=== PATIENT | male | born 1940 | race Caucasian/White ===

== ENCOUNTER 2020-03-11 00:41 | Inpatient (IN) | payer MEDICARE, BC ==
[~2020-03-11] VITALS: Ht 182.9 cm; Wt 50.8 kg
--- NOTE | 2020-03-11 01:04 | NUR ---
BIBRA FROM HOME C/O MORE ALTERED THAN NORMAL. PER RA, BASELINE PT OPENS EYES, TODAY PT IS "MORE AGITATED" , pt aaox0, non verbal, noted lethargic, pt sat on ra 95-96%. no sob noted. vss. pending er provider lesley
--- NOTE | 2020-03-11 01:29 | NUR ---
SHAHEEN CONTACT INFORMATION: [phone]
--- NOTE | 2020-03-11 01:40 | NUR ---
urine collected and sent to lab
[2020-03-11 01:47] LABS: BASOPHILS # (AUTO) 0.1 /CMM (0.0-0.2); BASOPHILS % (AUTO) 0.7 % (0.0-2.0); BILIRUBIN,URINE NEGATIVE (NEGATIVE); COLOR,URINE YELLOW (YELLOW); HEMATOCRIT 50 % (39-51); HEMOGLOBIN 16.2 g/dL (13.5-17.5); LEUKOCYTE ESTERASE ,URINE NEGATIVE (NEGATIVE); LYMPHOCYTES # (AUTO) 1.1 /CMM (0.8-4.8); LYMPHOCYTES % (AUTO) 13.3 % (20.0-44.0); MEAN CORPUSCULAR HGB CONC 33 g/dl (31.0-36.0); MEAN CORPUSCULAR VOLUME 95 fL (80-96); MONOCYTES # (AUTO) 1.1 /CMM (0.1-1.30); MONOCYTES % (AUTO) 14.3 % (2.0-12.0); NEUTROPHILS # (AUTO) 5.8 /CMM (1.8-8.9); NEUTROPHILS % (AUTO) 71.7 % (43.0-81.0); NITRITE, URINE NEGATIVE (NEGATIVE); PH,URINE 5.5 (5.0-8.0); PLATELET COUNT (AUTO) 235 /CMM (150-450); PROTEIN,URINE NEGATIVE (NEGATIVE); RED BLOOD CELL COUNT(AUTO) 5.25 MIL/uL (4.5-6.0); UGLUCOSE NEGATIVE (NEGATIVE); UROBILINOGEN,URINE 0.2 EU/dL (0.2)
[2020-03-11 01:59] LABS: CALCIUM, SERUM 9.1 mg/dL (8.5-10.1); CARBON DIOXIDE 27 mmol/L (21-32); CHLORIDE 112 mmol/L (98-107); CREATININE 1.4 mg/dL (0.6-1.3); GLUCOSE 141 mg/dL (74-106); POTASSIUM 4.7 mmol/L (3.5-5.1); SODIUM SERUM 148 mmol/L (136-145); UREA NITROGEN, BLOOD 32 mg/dL (7-18)
[2020-03-11 02:05] LABS: ALANINE AMINOTRANSFERASE 83 U/L (12-78); ALBUMIN 2.7 g/dL (3.4-5.0); ALKALINE PHOSPHATASE 93 U/L (46-116); ASPARTATE AMINOTRANSFERASE 67 U/L (15-37); BILIRUBIN,DIRECT 0.3 mg/dL (0.0-0.2); TOTAL PROTEIN, SERUM 6.9 g/dL (6.4-8.2)
[2020-03-11 02:07] LABS: SERUM AMMONIA 2 umol/L (11-32)
[2020-03-11] MEDS ORDERED: IV NS 0.9% 1,000 ML IV STA (02:14)
[2020-03-11] MEDS ORDERED: HYDROCODONE/APAP 5/325MG TABLET PO PRN ×2 (03:00→16:30)
[2020-03-11] MEDS ORDERED: MAGNESIUM HYDROXIDE 30 ML UDC PO PRN ×2 (03:00→16:30)
[2020-03-11] MEDS ORDERED: ACETAMINOPHEN 325 MG TABLET PO PRN (03:00)
[2020-03-11] MEDS ORDERED: AZITHROMYCIN 500 MG in IV D5W 250 ML IV ONE (03:00)
[2020-03-11] MEDS ORDERED: ONDANSETRON HCL/PF 4 MG/2 ML VIAL IVP PRN ×2 (03:00→16:30)
[2020-03-11] MEDS ORDERED: ZOLPIDEM TARTRATE 5 MG TABLET PO PRN ×2 (03:00→16:30)
[2020-03-11] MEDS ORDERED: IV NS 0.9% 1,000 ML IV PRN (03:00)
[2020-03-11] MEDS ORDERED: CEFTRIAXONE 1 G in IV D5W 50 ML IV ONE (03:00)
[2020-03-11] MEDS ORDERED: HEPARIN SODIUM, PORCINE 5000 UNITS/1 ML VIAL SQ SCH (03:00)
--- NOTE | 2020-03-11 03:03 | NUR ---
COVID SWAB COLLECTED AND SENT TO LAB
[2020-03-11] MEDS ORDERED: CEFTRIAXONE 1GM BAG (ER ONLY) 50 ML IV ONE (03:38)
[2020-03-11] MEDS ORDERED: AZITHROMYCIN 500 MG VIAL ONE (03:38)
[2020-03-11] MEDS ORDERED: HEPARIN SODIUM, PORCINE 5000 UNITS/1 ML VIAL ONE (03:38)
--- NOTE | 2020-03-11 03:45 | NUR ---
REC'D POSITIVE COVID RESULTS. AWARE
--- NOTE | 2020-03-11 04:53 | NUR ---
UPDATED BRANDYN RE: PT'S CONDITION
[2020-03-11 05:33] LABS: D-DIMER 35.2 mg/L(FEU (0.17-0.50)
[2020-03-11] MEDS ORDERED: ENOXAPARIN SODIUM 60 MG/0.6 ML DISP.SYRIN SQ ONE ×2 (09:11→20:13)
[2020-03-11] MEDS: ENOXAPARIN SODIUM 60 MG/0.6 ML DISP.SYRIN SQ SCH ×2 (09:14→20:36)
--- NOTE | 2020-03-11 11:19 | NUR ---
PT SLEEPING, EASILY AROUSABLE. ON MONITOR STABLE VITALS. SPO2 95% ON 2L/MIN NC. WILL CONTINUE TO MONITOR.
--- NOTE | 2020-03-11 13:53 | NUR ---
RESTING IN BED. AROUSABLE, OPENS EYES AND TRACKS, REMAINS NON VERBAL. STABLE VITALS. WILL CONTINUE TO MONITOR.
[2020-03-11] MEDS ORDERED: Z GUARD REMEDY 2 OZ OINT TP PRN (16:30)
[2020-03-11] MEDS ORDERED: MAG HYDROX/AL HYDROX/SIMETH 30 ML UDC PO PRN (16:30)
[2020-03-11] MEDS ORDERED: DEXAMETHASONE SOD PHOSPHATE 10 MG/ML VIAL ONE (16:44)
[2020-03-11] MEDS: DEXAMETHASONE SOD PHOSPHATE 4 MG/ML VIAL IV SCH (16:48)
--- NOTE | 2020-03-11 17:35 | NUR ---
PT CLEANED, PROVIDED W/ NEW DIAPER. KEPT WARM.
--- NOTE | 2020-03-11 19:10 | NUR ---
PT SLEEPING, EASILY AROUSABLE. KEPT COMFORTABLE. STABLE VITALS.
--- NOTE | 2020-03-11 19:50 | NUR ---
REC'D PT IN BED , AWAKE . BREATHING EVENLY. ON O2 AT 4LPM VIA NC. JULITO WELL. NO SOB. NAD. NO S/S OF PAIN OR DISCOMFORT AT THIS TIME. BED LOW LOCKED POSITION. SR X 2. CALL LIGHT WITHIN REACH. HOB ELEVATED. WILL CONT TO MONITOR.
--- NOTE | 2020-03-11 19:51 | NUR ---
REPORT GIVEN TO AGUSTIN GLYNN FOR [facility].
[2020-03-11] MEDS: IV D5/0.45 NACL 1,000 ML IV PRN (20:36)
--- NOTE | 2020-03-11 22:15 | NUR ---
spoke to danni, the and updated her re pt's condition
[2020-03-12] MEDS ORDERED: CEFTRIAXONE 1 G in IV D5W 50 ML IV SCH (04:00)
--- NOTE | 2020-03-12 04:32 | NUR ---
REC'D CALL FROM LAB. PRELIMINARY BLOOD CULTURE RESULTS: GRAM POSITIVE COCCI IN CLUSTER. AUDI WARE NP MADE AWARE
[2020-03-12 05:47] LABS: BASOPHILS % (AUTO) 0.2 % (0.0-2.0); HEMATOCRIT 42 % (39-51); HEMOGLOBIN 13.9 g/dL (13.5-17.5); LYMPHOCYTES # (AUTO) 0.5 /CMM (0.8-4.8); LYMPHOCYTES % (AUTO) 8.8 % (20.0-44.0); MEAN CORPUSCULAR HGB CONC 33 g/dl (31.0-36.0); MEAN CORPUSCULAR VOLUME 93 fL (80-96); MONOCYTES # (AUTO) 0.5 /CMM (0.1-1.30); MONOCYTES % (AUTO) 8.9 % (2.0-12.0); NEUTROPHILS % (AUTO) 82.1 % (43.0-81.0); PLATELET COUNT (AUTO) 217 /CMM (150-450); RED BLOOD CELL COUNT(AUTO) 4.52 MIL/uL (4.5-6.0); WHITE BLOOD COUNT (AUTO) 6.1 K/uL (4.3-11.0)
[2020-03-12 05:58] LABS: CALCIUM, SERUM 8.4 mg/dL (8.5-10.1); CARBON DIOXIDE 22 mmol/L (21-32); CHLORIDE 120 mmol/L (98-107); CREATININE 0.7 mg/dL (0.6-1.3); GLUCOSE 147 mg/dL (74-106); MAGNESIUM 2.6 mg/dL (1.8-2.4); PHOSPHORUS 2.6 mg/dL (2.5-4.9); POTASSIUM 3.8 mmol/L (3.5-5.1); SODIUM SERUM 154 mmol/L (136-145); UREA NITROGEN, BLOOD 28 mg/dL (7-18)
[2020-03-12] MEDS ORDERED: VANCOMYCIN 1 GM in IV D5W 250ml IV ONE (06:00)
[2020-03-12 06:16] LABS: CHOLESTEROL 182 mg/dL (<200); HDL CHOLESTEROL 35 mg/dL (40-60); LDL 122 mg/dL (0-99); THYROID STIMULATING HORMONE 0.643 uIU/mL (0.358-3.74); TRIGLYCERIDES 128 mg/dL (30-150)
[2020-03-12] MEDS ORDERED: VANCOMYCIN 1 GM VIAL ONE (06:18)
[2020-03-12 06:40] LABS: B-TYPE NATRIURETIC PEPTIDE 882 PG/ML (0-125)
--- NOTE | 2020-03-12 07:12 | NUR ---
REPORT GIVEN TO NISHANT GLNYN FOR [facility].
[2020-03-12] MEDS ORDERED: DEXAMETHASONE SOD PHOSPHATE 4 MG/ML VIAL ONE (08:11)
[2020-03-12] MEDS ORDERED: ENOXAPARIN SODIUM 60 MG/0.6 ML DISP.SYRIN SQ ONE ×2 (08:11→20:38)
[2020-03-12] MEDS: DEXAMETHASONE SOD PHOSPHATE 4 MG/ML VIAL IV SCH (08:27)
[2020-03-12] MEDS: ENOXAPARIN SODIUM 60 MG/0.6 ML DISP.SYRIN SQ SCH ×2 (08:30→21:54)
[2020-03-12] MEDS: IV D5/0.45 NACL 1,000 ML IV PRN (12:43)
[2020-03-12 14:27] LABS: C-REACTIVE PROTEIN 5.8 mg/dL (0.0-0.9)
--- NOTE | 2020-03-12 19:00 | NUR ---
SPOKE TO PT ABOUT PT CONDITION
--- NOTE | 2020-03-12 19:24 | NUR ---
REC'D PT IN BED , AWAKE RESPONSIVE TO MY GREETING AND VERBALIZED FEELING GOOD.. BREATHING EVENLY. ON O2 AT 4LPM VIA NC. JULITO WELL. NO SOB. NAD. NO S/S OF PAIN OR DISCOMFORT AT THIS TIME. ON ONGOING IVF HYDRATION JULITO WELL. BED LOW LOCKED POSITION. SR X 2. CALL LIGHT WITHIN REACH. HOB ELEVATED. WILL CONT TO MONITOR.
[2020-03-13] MEDS: IV D5W 1,000 ML IV PRN (02:15)
--- NOTE | 2020-03-13 02:17 | NUR ---
Patient is resting comfortably in bed with eyes closed. Easily aroused. VSS
--- NOTE | 2020-03-13 04:33 | NUR ---
Patient is resting comfortably in bed with eyes closed. Easily aroused. VSS
[2020-03-13 04:42] LABS: BASOPHILS % (AUTO) 0.1 % (0.0-2.0); HEMATOCRIT 41 % (39-51); HEMOGLOBIN 13.5 g/dL (13.5-17.5); LYMPHOCYTES # (AUTO) 0.7 /CMM (0.8-4.8); LYMPHOCYTES % (AUTO) 11.9 % (20.0-44.0); MEAN CORPUSCULAR HGB CONC 33 g/dl (31.0-36.0); MEAN CORPUSCULAR VOLUME 95 fL (80-96); MONOCYTES # (AUTO) 0.8 /CMM (0.1-1.30); MONOCYTES % (AUTO) 12.2 % (2.0-12.0); NEUTROPHILS # (AUTO) 4.7 /CMM (1.8-8.9); NEUTROPHILS % (AUTO) 75.8 % (43.0-81.0); PLATELET COUNT (AUTO) 210 /CMM (150-450); RED BLOOD CELL COUNT(AUTO) 4.34 MIL/uL (4.5-6.0); WHITE BLOOD COUNT (AUTO) 6.2 K/uL (4.3-11.0)
[2020-03-13 04:53] LABS: CALCIUM, SERUM 8.1 mg/dL (8.5-10.1); MAGNESIUM 2.3 mg/dL (1.8-2.4); PHOSPHORUS 2.1 mg/dL (2.5-4.9); POTASSIUM 3.8 mmol/L (3.5-5.1)
[2020-03-13] MEDS: VANCOMYCIN 1 GM in IV D5W 250 ML IV SCH (07:10)
[2020-03-13] MEDS ORDERED: DEXAMETHASONE SOD PHOSPHATE 10 MG/ML VIAL ONE (08:32)
[2020-03-13] MEDS ORDERED: ENOXAPARIN SODIUM 60 MG/0.6 ML DISP.SYRIN SQ ONE ×2 (08:32→20:38)
[2020-03-13] MEDS: DEXAMETHASONE SOD PHOSPHATE 4 MG/ML VIAL IV SCH (08:42)
[2020-03-13] MEDS: ENOXAPARIN SODIUM 60 MG/0.6 ML DISP.SYRIN SQ SCH ×2 (08:43→21:04)
[2020-03-13 13:59] LABS: C-REACTIVE PROTEIN 2.9 mg/dL (0.0-0.9)
[2020-03-13] MEDS ORDERED: NEUTRA PHOS 1 POWD.PACKET PO ONE (18:00)
--- NOTE | 2020-03-13 19:37 | NUR ---
report given to Juan GLYNN for jurgen
--- NOTE | 2020-03-14 02:47 | NUR ---
REPORT GIVEN TO GARY GLYNN FOR [facility].
--- NOTE | 2020-03-14 03:24 | NUR ---
PATIENT TAKEN TO ASSIGNED ROOM FOR [facility].
[2020-03-14] MEDS: IV D5W 1,000 ML IV PRN ×2 (03:43→17:38)
[2020-03-14] MEDS: ACETAMINOPHEN 325 MG TABLET PO PRN (03:43)
--- NOTE | 2020-03-14 03:45 | NUR ---
SLEEVE MAKER NOTE: RECEIVE PATIENT FROM ER, NO ACUTE DISTRESS NOTED. BREATHING EVEN AND UNLABORED, NO SOB NOTED. OXYGEN ON 4 LITERS VIA NC IN PLACE. IV TO RFA IN PLACE. ISOLATION PRECAUTIONS OBSERVED. BED LOCKED AND IN LOWEST POSITION, CALL LIGHT IN REACH. WILL CONTINUE TO MONITOR.
--- NOTE | 2020-03-14 03:54 | NUR ---
RN NOTES: PT. HAD A TEMP OF 101. ADMINISTERED TYLENOL 650 MG PO PRN ORDERED. WILL CONTINUE TO MONITOR.
[2020-03-14 04:00] VITALS: BP 126/65
--- NOTE | 2020-03-14 07:15 | NUR ---
TELE/RN OPENING NOTES RECEIVED PATIENT ON BED. SLEEPING EASILY AROUSABLE BY NAME AND LIGHT TOUCH. PATIENT IN NO APPARENT RESPIRATORY DISTRESS. NO SIGN AND SYMPTOM OF PAIN NOTED AT THIS TIME. TALK TO SHAHEEN THOMPSON () AGREED GIVING TELEPHONE CONSENT FOR DNR-DNI CHARGE NURSE CHERELLE IS AWARE AND IS AWARE. WILL CONTINUE TO MONITOR.
--- NOTE | 2020-03-14 07:20 | NUR ---
confirmed with patient wishes to be no tube and no resuscitation ,allow [email or web address] notified.
[2020-03-14 07:25] LABS: BASOPHILS % (AUTO) 0.1 % (0.0-2.0); HEMATOCRIT 39 % (39-51); HEMOGLOBIN 12.8 g/dL (13.5-17.5); LYMPHOCYTES # (AUTO) 0.6 /CMM (0.8-4.8); LYMPHOCYTES % (AUTO) 8.8 % (20.0-44.0); MEAN CORPUSCULAR HGB CONC 33 g/dl (31.0-36.0); MEAN CORPUSCULAR VOLUME 93 fL (80-96); MONOCYTES # (AUTO) 0.7 /CMM (0.1-1.30); MONOCYTES % (AUTO) 10.8 % (2.0-12.0); NEUTROPHILS # (AUTO) 5.1 /CMM (1.8-8.9); NEUTROPHILS % (AUTO) 80.3 % (43.0-81.0); PLATELET COUNT (AUTO) 220 /CMM (150-450); RED BLOOD CELL COUNT(AUTO) 4.21 MIL/uL (4.5-6.0); WHITE BLOOD COUNT (AUTO) 6.4 K/uL (4.3-11.0)
--- NOTE | 2020-03-14 07:35 | NUR ---
TELE/RN OPENING NOTES RECEIVED PATIENT ON BED. SLEEPING EASILY AROUSABLE BY NAME AND LIGHT TOUCH. PATIENT IN NO APPARENT RESPIRATORY DISTRESS NOTED. NO SIGN AND SYMPTOM OF PAIN NOTED AT THIS TIME. WILL CONTINUE TO MONITOR. Addendum: 03/14/20 at 1800 by RABIA ANGELES RN ERROR
[2020-03-14 07:58] LABS: CALCIUM, SERUM 8.5 mg/dL (8.5-10.1); CREATININE 0.9 mg/dL (0.6-1.3); MAGNESIUM 2.5 mg/dL (1.8-2.4); PHOSPHORUS 3.2 mg/dL (2.5-4.9); POTASSIUM 3.5 mmol/L (3.5-5.1)
[2020-03-14 08:00] VITALS: BP 133/73
--- NOTE | 2020-03-14 08:00 | NUR ---
WOUND CARE CONSULT: REVIEWED CHART, NURSING DOCUMENTATION AND PHOTOS WHICH INDICATE INTACT DEEP TISSUE INJURIES TO SACRUM, BACK, HEELS AND DRY ABRASION TO RT ELBOW AND FOREHEAD, PRESENT ON ADMISSION. RECOMMENDATIONS MADE FOR SKIN PROTECTION. DISCUSSED WITH NURSING STAFF. MD IN AGREEMENT WITH PLAN OF CARE.
[2020-03-14] MEDS: VANCOMYCIN 1 GM in IV D5W 250 ML IV SCH (09:45)
[2020-03-14] MEDS: DEXAMETHASONE SOD PHOSPHATE 4 MG/ML VIAL IV SCH (09:46)
[2020-03-14] MEDS: ENOXAPARIN SODIUM 60 MG/0.6 ML DISP.SYRIN SQ SCH (09:52)
[2020-03-14] MEDS: ENSURE ENLIVE 237 ML LIQUID (VANILLA) PO SCH ×3 (11:00→17:32)
[2020-03-14 12:00] VITALS: BP 139/62
[2020-03-14 16:00] VITALS: BP 111/75
[2020-03-14 17:01] LABS: C-REACTIVE PROTEIN 4.3 mg/dL (0.0-0.9)
--- NOTE | 2020-03-14 18:57 | NUR ---
TELE/RN CLOSING NOTES PATIENT IS ON BED, SLEEPING BUT EASILY AROUSABLE BY NAME AND LIGHT TOUCH. PATIENT IN NO APPARENT RESPIRATORY DISTRESS. NO SIGN AND SYMPTOM OF NOTED AT THIS TIME. PATIENT IS ON 4 L OXYGEN SATURATION 100%. TELE MONITOR READING SINUS RHYTHM BBB 88 BPM. IV ACCESS AT RIGHT FOREARM # 20 WITH IV FLUID OF D5W 1L AT 75ML/HR ON AND INFUSING WELL. SEEN TIFFANY EXAMINED BY MD WITH ORDERS MADE AND CARRIED OUT. ALL DUE MEDICATIONS WAS GIVEN. SAFETY PRECAUTIONS WAS IN PLACED. BED IN LOWEST POSITION AND LOCKED . SIDERAILS UP X2. CALL LIGHT WITHIN REACH. WILL ENDORSED TO AIRCRAFT ARMORER FOR [facility].
[2020-03-14 20:00] VITALS: BP 117/72
[2020-03-15] VITALS (7 sets, daily range): BP systolic 121–167; BP diastolic 59–81
[2020-03-15 07:24] LABS: BASOPHILS % (AUTO) 0.1 % (0.0-2.0); HEMATOCRIT 38 % (39-51); HEMOGLOBIN 12.5 g/dL (13.5-17.5); LYMPHOCYTES # (AUTO) 0.7 /CMM (0.8-4.8); LYMPHOCYTES % (AUTO) 10.8 % (20.0-44.0); MEAN CORPUSCULAR HGB CONC 33 g/dl (31.0-36.0); MEAN CORPUSCULAR VOLUME 93 fL (80-96); MONOCYTES # (AUTO) 0.8 /CMM (0.1-1.30); MONOCYTES % (AUTO) 11.2 % (2.0-12.0); NEUTROPHILS # (AUTO) 5.2 /CMM (1.8-8.9); NEUTROPHILS % (AUTO) 77.9 % (43.0-81.0); PLATELET COUNT (AUTO) 194 /CMM (150-450); RED BLOOD CELL COUNT(AUTO) 4.11 MIL/uL (4.5-6.0); WHITE BLOOD COUNT (AUTO) 6.7 K/uL (4.3-11.0)
--- NOTE | 2020-03-15 07:30 | NUR ---
RN OPENING NOTES PATIENT IS ON BED, SLEEPING BUT EASILY AROUSABLE BY NAME AND LIGHT TOUCH. PATIENT IN NO APPARENT RESPIRATORY DISTRESS. NO SIGN AND SYMPTOM OF NOTED AT THIS TIME. PATIENT IS ON 4 L OXYGEN SATURATION 98%. TELE MONITOR READING SINUS RHYTHM BBB. IV SITE ON R FOREARM 20G. ARM SWOLLEN DUE TO INFILTRATION. IV FLUIDS STOPPED. SAFETY PRECAUTIONS WAS IN PLACED. BED IN LOWEST POSITION AND LOCKED . SIDERAILS UP X2. CALL LIGHT WITHIN REACH. WILL ENDORSED TO DAM TENDER FOR [facility].
[2020-03-15] MEDS: VANCOMYCIN 1 GM in IV D5W 250 ML IV SCH ×2 (07:32→08:05)
[2020-03-15 07:43] LABS: CALCIUM, SERUM 8.5 mg/dL (8.5-10.1); CREATININE 0.9 mg/dL (0.6-1.3); MAGNESIUM 2.4 mg/dL (1.8-2.4); PHOSPHORUS 2.2 mg/dL (2.5-4.9); POTASSIUM 3.6 mmol/L (3.5-5.1)
--- NOTE | 2020-03-15 08:00 | NUR ---
PATIENT'S IV LINE ASSESSED TO BE INFILTRATED. ARM SWOLLEN. IV REMOVED AND ARM ELEVATED. ATTEMPTED TO RESTART IV ON LEFT ARM, BUT UNSUCCESSFUL. HOLD IV MEDICATIONS FOR NOW UNTIL MIDLINE ORDER CAN BE OBTAINED.
[2020-03-15] MEDS: IV D5W 1,000 ML IV PRN (08:14)
[2020-03-15] MEDS: DEXAMETHASONE SOD PHOSPHATE 4 MG/ML VIAL IV SCH ×2 (08:15→15:14)
[2020-03-15] MEDS: ENSURE ENLIVE 237 ML LIQUID (VANILLA) PO SCH ×4 (08:16→16:22)
[2020-03-15] MEDS: ENOXAPARIN SODIUM 40 MG/0.4 ML DISP.SYRIN SQ SCH (08:16)
--- NOTE | 2020-03-15 09:00 | NUR ---
PATIENT UNABLE TO TOLERATE PO, ENSURE HELD. SPEECH THERAPIST WITH PATIENT TO ASSESS SWALLOWING.
[2020-03-15] MEDS ORDERED: MEMA10TA56 PO (09:45)
[2020-03-15] MEDS ORDERED: CLON0.5T4 PO (09:45)
[2020-03-15] MEDS ORDERED: RIVA4.5C10 PO (09:45)
[2020-03-15] MEDS ORDERED: ATOR20TA PO (09:45)
[2020-03-15] MEDS ORDERED: ESCI5TAB PO (09:45)
[2020-03-15] MEDS ORDERED: PANT40TA49 PO (09:45)
[2020-03-15] MEDS ORDERED: FINA5TAB11 PO (09:45)
[2020-03-15] MEDS ORDERED: AMLO2.5T4 PO (09:45)
--- NOTE | 2020-03-15 13:22 | NUR ---
UNABLE TO GIVE 1300 ENSURE, DUE TO PATIENT'S INABILITY TO SWALLOW. SPEECH THERAPIST STATED PATIENT DID NOT PASS SWALLOW EVALUATION.
[2020-03-15] MEDS ORDERED: NEUTRA PHOS 1 POWD.PACKET PO ONE (15:00)
[2020-03-15] MEDS ORDERED: POTASSIUM PHOSPHATE MM 15 MMOL in IV NS 0.9% 250 ML IV SCH (15:30)
[2020-03-15] MEDS ORDERED: VANCOMYCIN 1 GM in IV D5W 250 ML IV SCH (16:00)
[2020-03-15] MEDS ORDERED: NEPRO 1,000 ML BOTTLE GT PRN (16:00)
[2020-03-15] MEDS ORDERED: Sodium Phosphate 15 MMOL in IV NS 0.9% 245 ML IV SCH ×2 (16:00→17:00)
--- NOTE | 2020-03-15 18:28 | NUR ---
RN CLOSING NOTES PATIENT CURRENTLY IN BED, RESTING. RESPONDS TO VERBAL AND PAINFUL STIMULI. tele reading shows sr with bbb. PATIENT CURRENTLY ON 4 LPM OXYGEN THERAPY VIA NASAL CANNULA. PATIENT IS CURRENTLY NPO. ORDERED OBTAINED FOR NG TUBE PLACEMENT. PLACED AND VERIFIED WITH XRAY. ORDER FOR NEPRO RECEIVED, WILL START TUBE FEEDING. CURRENTLY HAS IV ON L UPPER ARM MIDLINE RUNNING D5W @ 75 ML/HR. IV INTACT AND PATENT, NO S/S OF INFECTION AT THIS TIME. ALL SAFETY MEASURES IN PLACE PER HOSPITAL POLICY. BED LOCKED IN LOWEST POSITION. CALL LIGHT WITHIN REACH. WILL ENDORSE TO LIFE INSURANCE SPECIALIST NURSE FOR [facility].
--- NOTE | 2020-03-15 19:33 | NUR ---
VISITING TEACHER OPENING NOTE Patient awake in bed, A/O x1, responds to physical stimuli. Bed bound. Tele monitor reading sinus rhythm with BBB. Breathing even, unlabored on 4 LPM NC, [id number]%. NG tube in place, patent and intact. Skin warm, pink, dry. Redness noted on sacrum. Bruising noted on right and left arms. Scab noted on forehead. IV site JOSE RAFAEL midline runninig D5W @ 75 ml/hr, no signs of redness or infiltration. Patient NPO. BS hypoactive. Patient is incontinent. Bed in low position, wheels locked, side rails up x2, call light within reach.
[2020-03-16] VITALS (8 sets, daily range): BP systolic 99–170; BP diastolic 56–97
[2020-03-16] MEDS: IV D5W 1,000 ML IV PRN ×2 (05:20→13:56)
[2020-03-16] MEDS: ACETAMINOPHEN 325 MG TABLET PO PRN ×2 (05:21→20:38)
--- NOTE | 2020-03-16 06:23 | NUR ---
PUPIL PERSONNEL SERVICES DIRECTOR CLOSING NOTE Patient awake in bed, A/O x1, responds to painful stimuli. Tele monitor reading sinus rhythm with BBB. Breathing even, unlabored on 4 LPM NC, [id number]%. Redness noted on sacrum. Bruising noted on right and left arms. Scab noted on forehead. IV site JOSE RAFAEL midline running D5W @ 75 ml/hr, no signs of redness or infiltration. Patient on NG tube feeding, nepro @ 30 ml/hr. Patient tolerating well. No residual. Patient is incontinent, 2 BMs. Brown, soft, moderate. All needs met. Medications administered as ordered. Bed in low position, wheels locked, side rails up x2, call light within reach. Will endorse to oncoming nurse.
[2020-03-16 06:31] LABS: BASOPHILS % (AUTO) 0.1 % (0.0-2.0); HEMATOCRIT 37 % (39-51); HEMOGLOBIN 12.4 g/dL (13.5-17.5); LYMPHOCYTES # (AUTO) 0.5 /CMM (0.8-4.8); LYMPHOCYTES % (AUTO) 7.3 % (20.0-44.0); MEAN CORPUSCULAR HGB CONC 33 g/dl (31.0-36.0); MEAN CORPUSCULAR VOLUME 91 fL (80-96); MONOCYTES # (AUTO) 0.7 /CMM (0.1-1.30); MONOCYTES % (AUTO) 10.4 % (2.0-12.0); NEUTROPHILS # (AUTO) 5.9 /CMM (1.8-8.9); NEUTROPHILS % (AUTO) 82.2 % (43.0-81.0); PLATELET COUNT (AUTO) 199 /CMM (150-450); RED BLOOD CELL COUNT(AUTO) 4.08 MIL/uL (4.5-6.0); WHITE BLOOD COUNT (AUTO) 7.2 K/uL (4.3-11.0)
[2020-03-16 06:41] LABS: CALCIUM, SERUM 8.3 mg/dL (8.5-10.1); CREATININE 0.6 mg/dL (0.6-1.3); MAGNESIUM 2.1 mg/dL (1.8-2.4); PHOSPHORUS 2.5 mg/dL (2.5-4.9); POTASSIUM 3.7 mmol/L (3.5-5.1)
--- NOTE | 2020-03-16 07:28 | NUR ---
RN OPENING NOTES PATIENT IS ON BED, SLEEPING BUT AROUSABLE BY NAME AND LIGHT TOUCH. PATIENT IN NO APPARENT RESPIRATORY DISTRESS. NO SIGN AND SYMPTOM OF NOTED AT THIS TIME. PATIENT IS ON 4 L OXYGEN SATURATION 97%. TELE MONITOR READING SINUS RHYTHM BBB. IV SITE ON LEFT UPPER ARM MIDLINE 18G, INTACT AND PATENT. NO S/S OF INFECTION AT THIS TIME. SAFETY PRECAUTIONS WAS IN PLACED. BED IN LOWEST POSITION AND LOCKED . SIDERAILS UP X2. CALL LIGHT WITHIN REACH. WILL CONTINUE TO MONITOR AND PROVIDE CARE.
[2020-03-16] MEDS: ENSURE ENLIVE 237 ML LIQUID (VANILLA) PO SCH ×3 (09:00→16:05)
[2020-03-16] MEDS: ENOXAPARIN SODIUM 40 MG/0.4 ML DISP.SYRIN SQ SCH (09:26)
[2020-03-16] MEDS: DEXAMETHASONE SOD PHOSPHATE 4 MG/ML VIAL IV SCH (09:26)
[2020-03-16] MEDS ORDERED: VANCOMYCIN 1 GM in IV D5W 250 ML IV SCH (15:00)
[2020-03-16] MEDS: CEFTRIAXONE 1 G in IV D5W 50 ML IV SCH (15:51)
[2020-03-16] MEDS: JEVITY 1.2 CAL 1,000 ML BOTTLE GT PRN (17:34)
--- NOTE | 2020-03-16 18:37 | NUR ---
RN OPENING NOTES PATIENT IS ON BED, SLEEPING BUT AROUSABLE BY NAME AND LIGHT TOUCH. PATIENT IN NO APPARENT RESPIRATORY DISTRESS. NO SIGN AND SYMPTOM OF NOTED AT THIS TIME. PATIENT IS ON 4 L OXYGEN SATURATION 97%. TELE MONITOR READING SINUS RHYTHM BBB. IV SITE ON LEFT UPPER ARM MIDLINE 18G, INTACT AND PATENT. NO S/S OF INFECTION AT THIS TIME. NG TUBE IN PLACE, RUNNING JEVITY 1.2 @ 60ML/HR. PATIENT TOLERATING FEEDING WELL. SAFETY PRECAUTIONS WAS IN PLACED. BED IN LOWEST POSITION AND LOCKED . SIDERAILS UP X2. CALL LIGHT WITHIN REACH. WILL ENDORSE TO RETAIL DEPARTMENT RESET NURSE FOR [facility]. Addendum: 03/16/20 at 1845 by CATY FATIMA RN RN CLOSING NOTE
--- NOTE | 2020-03-16 20:36 | NUR ---
TELE-1/MINING PLANT OPERATOR CXR CONFIRMED NGT PLACEMENT.
[2020-03-17] VITALS: BP 157/95
[2020-03-17] MEDS: IV D5W 1,000 ML IV PRN ×2 (02:49→18:10)
[2020-03-17 04:00] VITALS: BP 165/80
--- NOTE | 2020-03-17 06:37 | NUR ---
TELE-1/CLINICAL RESOURCE MANAGER PT VOMITED x1. ZOFRAN ADMINISTERED. FEEDING HELD. WILL ENDORSE TO AM SHIFT. WILL CONTINUE TO MONITOR.
--- NOTE | 2020-03-17 07:55 | NUR ---
RN OPENING NOTES PATIENT IS ON BED, SLEEPING BUT CAN BE WOKEN BY CALLING NAMES. PATIENT IN NO APPARENT RESPIRATORY DISTRESS. NO SIGN AND SYMPTOM OF NOTED AT THIS TIME. PATIENT IS ON 4 L OXYGEN SATURATION 97%. TELE MONITOR READING SINUS RHYTHM AND BBB. IV SITE ON LEFT UPPER ARM MIDLINE 18G, INTACT AND PATENT. NO S/S OF INFECTION AT THIS TIME D5W RUNNING 275 ML/HR. NG TUBE IN PLACE,CHEST X RAY BEEN DONE TO VERIFY RUNNING JEVITY 1.2 @ 60ML/HR. PATIENT TOLERATING FEEDING WELL. SAFETY PRECAUTIONS WAS IN PLACED. BED IS IN LOWEST POSITION AND LOCKED . SIDERAILS UP X2. CALL LIGHT WITHIN REACH. WILL CONTINUE TO MONITOR.
[2020-03-17 08:00] VITALS: BP_SYST 114; BP_SYST 168; BP_DIAS 61; BP_DIAS 94
[2020-03-17] MEDS: DEXAMETHASONE SOD PHOSPHATE 4 MG/ML VIAL IV SCH (08:21)
[2020-03-17] MEDS: ENOXAPARIN SODIUM 40 MG/0.4 ML DISP.SYRIN SQ SCH (08:23)
[2020-03-17] MEDS: ENSURE ENLIVE 237 ML LIQUID (VANILLA) PO SCH ×3 (08:26→17:01)
[2020-03-17 08:35] LABS: EOSINOPHILS % (AUTO) 0.1 % (0.0-6.0); HEMATOCRIT 39 % (39-51); HEMOGLOBIN 12.7 g/dL (13.5-17.5); LYMPHOCYTES # (AUTO) 0.5 /CMM (0.8-4.8); LYMPHOCYTES % (AUTO) 7.2 % (20.0-44.0); MEAN CORPUSCULAR HGB CONC 33 g/dl (31.0-36.0); MEAN CORPUSCULAR VOLUME 92 fL (80-96); MONOCYTES # (AUTO) 0.8 /CMM (0.1-1.30); MONOCYTES % (AUTO) 11.8 % (2.0-12.0); NEUTROPHILS # (AUTO) 5.7 /CMM (1.8-8.9); NEUTROPHILS % (AUTO) 80.9 % (43.0-81.0); PLATELET COUNT (AUTO) 203 /CMM (150-450)
[2020-03-17 10:21] LABS: CALCIUM, SERUM 8.5 mg/dL (8.5-10.1); CREATININE 0.8 mg/dL (0.6-1.3); MAGNESIUM 2.1 mg/dL (1.8-2.4); PHOSPHORUS 2.2 mg/dL (2.5-4.9); POTASSIUM 3.6 mmol/L (3.5-5.1)
[2020-03-17 12:00] VITALS: BP 158/81
[2020-03-17] MEDS ORDERED: NEUTRA PHOS 1 POWD.PACKET PO ONE (12:00)
[2020-03-17] MEDS: CEFTRIAXONE 1 G in IV D5W 50 ML IV SCH (15:03)
--- NOTE | 2020-03-17 15:06 | NUR ---
RN NOTES PT HAS NO S/S OF RESPIRATORY DISTRESS NOTED
[2020-03-17 16:00] VITALS: BP_SYST 148; BP_SYST 152; BP_DIAS 74; BP_DIAS 90
--- NOTE | 2020-03-17 18:48 | NUR ---
RN CLOSING NOTES PATIENT CURRENTLY IN BED, RESTING. RESPONDS TO VERBAL AND PAINFUL STIMULI ONLY. TELE/MONITOR IS READING SR AND BBB. PATIENT CURRENTLY ON 4 LPM OXYGEN THERAPY VIA NASAL CANNULA. NO S/S OF RESPIRATORY DISTRESS NOTED. R NARES NGT TUBE JEVITY RUNNING @ 60 ML/HR TUBE FEEDING. CURRENTLY HAS IV ON L UPPER ARM MIDLINE RUNNING D5W @ 75 ML/HR. IV INTACT AND PATENT, NO S/S OF INFECTION OR INFILTRATION AT THIS TIME. ALL SAFETY MEASURES IN PLACE PER HOSPITAL POLICY. BED LOCKED AND IN THE LOWEST POSITION.SIDE RAILS ARE UP X2. CALL LIGHT WITHIN REACH. WILL ENDORSE TO ESTHETICIAN MAKEUP ARTIST NURSE FOR [facility].
--- NOTE | 2020-03-17 19:16 | NUR ---
RN NOTE RECEIVED PATIENT IN BED IN SEMI MULTANI'S POSITION, RESPONSIVE TO VERBAL AND TACTILE STIMULI, ON NASAL CANNULA 4LPM. RESPIRATIONS EVEN AND UNLABORED, NO SIGNS OF OF PAIN OR DISCOMFORT, MED SURG STATUS, WITH RIGHT NARE NGT PATENT AND IN PLACE VERIFIED BY AUSCULTATION AND ASPIRATION OF GASTRIC CONTENTS. WITH 40ML OF RESIDUAL NOTED, LOWERED TUBE FEEDING RATE TO 30ML/HOUR. WILL ADVANCE TOLERATED. WITH LEFT UPPER ARM MIDLINE RUNNING WITH D5 @ @75ML/HOUR ORDERED. IV SITE WITHOUT SIGNS OF COMPLICATIONS, SAFETY MEASURES IN PLACE PER PROTOCOL, BED LOCKED AND IN LOW POSITION, BED ALARM ON, SIDE RAILS UP X 2, WILL MONITOR PATIENT.
[2020-03-17 20:00] VITALS: BP 122/73
[2020-03-18] VITALS: BP 113/57
--- NOTE | 2020-03-18 02:00 | NUR ---
RN NOTE COMPLETE BED BATH AND LINEN CHANGE COMPLETED, PT TOLERATED WELL. NGT PLACEMENT VERIFIED BY AUSCULTATION AND ASPIRATION OF GASTRIC CONTENTS BEFORE RESUMPTION OF TUBE FEEDING AT 60CC/HOUR. NO RESIDUAL NOTED AT THIS TIME. WILL CONTINUE TO MONITOR.
[2020-03-18] MEDS: JEVITY 1.2 CAL 1,000 ML BOTTLE GT PRN (02:50)
[2020-03-18 04:00] VITALS: BP 103/61
--- NOTE | 2020-03-18 04:00 | NUR ---
RN NOTE PT SLEEPING IN BED COMFORTABLY WITHOUT SIGNS OF DISTRESS, PAIN OR DISCOMFORT. SAFETY MEASURES IN PLACE, HEAD OF BED ELEVATED FOR ASPIRATION PRECAUTIONS, WILL CONTINUE TO MONITOR.
--- NOTE | 2020-03-18 06:50 | NUR ---
RN NOTE NO ACUTE CHANGES OBSERVED OVERNIGHT.PT IN BED IN SEMI MULTANI'S POSITION, ALERT AND ORIENTED X 1, ON NASAL CANNULA 4LPM. RESPIRATIONS EVEN AND UNLABORED, NO SIGNS OF OF PAIN OR DISCOMFORT, MED SURG STATUS, WITH RIGHT NARE NGT PATENT AND IN PLACE VERIFIED BY AUSCULTATION AND ASPIRATION OF GASTRIC CONTENTS. NO RESIDUAL, TUBE FEEDING AT 60CC/HOUR ORDERED AND TOLERATING WELL. WITH LEFT UPPER ARM MIDLINE RUNNING WITH D5 @ @75ML/HOUR ORDERED. MIDLINE SITE WITHOUT SIGNS OF COMPLICATIONS, SAFETY MEASURES IN PLACE PER PROTOCOL, BED LOCKED AND IN LOW POSITION, BED ALARM ON, SIDE RAILS UP X 2, ALL NEEDS MET AND ATTENDED TO, WILL ENDORSE TO MORNING RN FOR [facility].
[2020-03-18 06:55] LABS: BASOPHILS % (AUTO) 0.1 % (0.0-2.0); EOSINOPHILS % (AUTO) 0.3 % (0.0-6.0); HEMATOCRIT 35 % (39-51); HEMOGLOBIN 11.7 g/dL (13.5-17.5); LYMPHOCYTES # (AUTO) 0.9 /CMM (0.8-4.8); LYMPHOCYTES % (AUTO) 12.6 % (20.0-44.0); MEAN CORPUSCULAR HGB CONC 33 g/dl (31.0-36.0); MEAN CORPUSCULAR VOLUME 92 fL (80-96); MONOCYTES % (AUTO) 14.5 % (2.0-12.0); NEUTROPHILS % (AUTO) 72.5 % (43.0-81.0); PLATELET COUNT (AUTO) 184 /CMM (150-450); RED BLOOD CELL COUNT(AUTO) 3.84 MIL/uL (4.5-6.0); WHITE BLOOD COUNT (AUTO) 6.9 K/uL (4.3-11.0)
[2020-03-18 07:22] LABS: CALCIUM, SERUM 8.2 mg/dL (8.5-10.1); CREATININE 0.6 mg/dL (0.6-1.3); PHOSPHORUS 2.9 mg/dL (2.5-4.9); POTASSIUM 3.4 mmol/L (3.5-5.1)
--- NOTE | 2020-03-18 07:39 | NUR ---
MS RN OPENING NOTE PATIENT IS IN BED RESTING. PATIENT IS IN NO ACUTE DISTRESS. PATIENT IS ON OXYGEN 4L ON NC. NO SOB NOTED. HOB ELEVATED. SAFETY PRECAUTIONS ARE IN PLACE. BED IN THE LOWEST POSITION WITH SIDE RAILS UP. BED BREAK IS ON, CALL LIGHT WITHIN REACH. WILL CONTINUE TO MONITOR PATIENT CLOSELY THROUGH OUT THE SHIFT.
[2020-03-18 08:00] VITALS: BP 123/69
[2020-03-18] MEDS: ENSURE ENLIVE 237 ML LIQUID (VANILLA) PO SCH ×3 (09:00→16:00)
[2020-03-18] MEDS: DEXAMETHASONE SOD PHOSPHATE 4 MG/ML VIAL IV SCH (09:46)
[2020-03-18] MEDS: ENOXAPARIN SODIUM 40 MG/0.4 ML DISP.SYRIN SQ SCH (09:47)
--- NOTE | 2020-03-18 09:54 | NUR ---
MS RN NOTE HELD ENSURE DUE TO PATIENT NPO BY MOUTH AND WITH NG TUBE.
[2020-03-18] MEDS: IV D5W 1,000 ML IV PRN (10:55)
[2020-03-18] MEDS ORDERED: POTASSIUM CHLORIDE 20 MEQ POWDER PACKET GT SCH (11:00)
[2020-03-18 12:00] VITALS: BP 134/71
--- NOTE | 2020-03-18 12:49 | NUR ---
MS RN NOTE HELD ENSURE DUE TO PATIENT NPO BY MOUTH AND WITH NG TUBE ON TUBE FEEDINGS.
[2020-03-18] MEDS: CEFTRIAXONE 1 G in IV D5W 50 ML IV SCH (15:18)
[2020-03-18 16:00] VITALS: BP 124/67
--- NOTE | 2020-03-18 16:00 | NUR ---
MS RN NOTE HELD 1700 ENSURE DUE TO PATIENT NPO BY MOUTH AND WITH NG TUBE ON TUBE FEEDINGS.
--- NOTE | 2020-03-18 18:36 | NUR ---
MS RN CLOSING NOTE PATIENT IS IN BED RESTING. PATIENT IS IN NO ACUTE DISTRESS. NO SOB NOTED. TITRATED DOWN PATIENTS OXYGEN TO 2L ON NC. PATIENT TOLERATING WELL. HOB ELEVATED. TURN AND REPOSITION PATIENT EVERY 2 HOURS. SAFETY PRECAUTIONS ARE IN PLACE. BED IN THE LOWEST POSITION WITH SIDE RAILS UP. BED BREAK IS ON, CALL LIGHT WITHIN REACH. ENDORSE PATIENT TO THE CATALYTIC CONVERTER OPERATOR NURSE FOR [facility].
--- NOTE | 2020-03-18 19:30 | NUR ---
DIP STAND LOADER OPENING NOTE RECEIVED PATIENT IN BED. A/OX1, VERY CONFUSED. ON OXYGEN 2L/MIN VIA NASAL CANNULA. RESPIRATIONS ARE EVEN AND UNLABORED. PATIENT IS CONTINUOUSLY TRYING TO PLACE NASAL CANNULA IN THE MOUTH, PROVIDED EDUCATION. NO S/S PAIN NOTED AT THIS TIME. IN NO APPARENT DISTRESS. IV ACCESS IN JOSE RAFAEL MIDLINE RUNNING D5W@75ML/HR. NG TUBE IS PRESENT IN LEFT NARE 51CM, SECURED WITH TAPE, NO RESIDUAL, FEEDING JEVOTY 1.2 RUNNING @60ML/HR. BED IS LOW AND LOCKED, HOB ELEVATED IN SEMI FOWLERS, SIDE RAILS UP X3. CALL LIGHT WITHIN REACH. WILL CONTINUE TO MONITOR THROUGHOUT SHIFT.
[2020-03-18 20:00] VITALS: BP 141/60
--- NOTE | 2020-03-18 20:30 | NUR ---
MS RN NOTE PER STAFF RN VITAL SHEET PATIENT TEMP IS 96.9 AND HR 44. REASSESS PATIENT. TEMP IS 97.9, STILL PROVIDED BLANKETS. CHECK HR ON RIGHT RADIAL PULSE IS 62/MIN.
[2020-03-19] MEDS: JEVITY 1.2 CAL 1,000 ML BOTTLE GT PRN (00:20)
[2020-03-19] MEDS: IV D5W 1,000 ML IV PRN ×2 (02:50→20:05)
[2020-03-19 04:00] VITALS: BP 141/76
[2020-03-19 07:10] LABS: BASOPHILS % (AUTO) 0.1 % (0.0-2.0); EOSINOPHILS % (AUTO) 0.3 % (0.0-6.0); HEMATOCRIT 35 % (39-51); HEMOGLOBIN 11.7 g/dL (13.5-17.5); LYMPHOCYTES % (AUTO) 9.8 % (20.0-44.0); MEAN CORPUSCULAR HGB CONC 34 g/dl (31.0-36.0); MEAN CORPUSCULAR VOLUME 91 fL (80-96); MONOCYTES # (AUTO) 1.3 /CMM (0.1-1.30); MONOCYTES % (AUTO) 12.6 % (2.0-12.0); NEUTROPHILS # (AUTO) 7.9 /CMM (1.8-8.9); NEUTROPHILS % (AUTO) 77.2 % (43.0-81.0); PLATELET COUNT (AUTO) 218 /CMM (150-450); WHITE BLOOD COUNT (AUTO) 10.3 K/uL (4.3-11.0)
--- NOTE | 2020-03-19 07:30 | NUR ---
ANIMAL SHELTER MANAGER CLOSING NOTE PATIENT RESTING IN BED. A/OX1. REMAINS ON OXYGEN 2L/MIN VIA NASAL CANNULA. NO RESP DISTRESS, NO PAIN NOTED. NO DISTRESS. IV ACCESS MAINTAINED IN JOSE RAFAEL MIDLINE MAINTAINED AND RUNNING D5W@75ML/HR. NG TUBE IS MAINTAINED STILL RUNNING FEEDING JEVITY 1.2 RUNNING @60ML/HR. BED REMAINS LOW AND LOCKED, HOB ELEVATED IN SEMI FOWLERS, SIDE RAILS UP X3. CALL LIGHT WITHIN REACH. PHOTOS TAKEN TODAY PER PROTOCOL. WILL ENDORSE TO NEXT SHIFT.
[2020-03-19 08:00] VITALS: BP 139/70
--- NOTE | 2020-03-19 08:00 | NUR ---
RN OPENING NOTE RECEIVED PATIENT IN BED WITH HOB AT SEMI FOWLERS POSITION. PATIENT IS AOX1. NC IS APPLIED AND GIVING 2L OF O2. PATIENT HAS SACRAL, RIGHT HEEL, AND RIGHT ELBOW WOUNDS. JOSE RAFAEL MIDLINE IS INTACT, PATENT, AND HAS NO SIGNS OF INFILTRATION. NG TUBE IS IN PLACE. BED IS LOCKED IN LOWEST POSITION, 3 SIDE RAILS RAISED, CALL BURRIS WITHIN REACH. WILL CONTINUE TO MONITOR THROUGHOUT SHIFT.
[2020-03-19 08:01] LABS: ALANINE AMINOTRANSFERASE 92 U/L (12-78); ALBUMIN 1.7 g/dL (3.4-5.0); ALKALINE PHOSPHATASE 74 U/L (46-116); ASPARTATE AMINOTRANSFERASE 55 U/L (15-37); BILIRUBIN,TOTAL 0.4 mg/dL (0.2-1.0); CALCIUM, SERUM 8.2 mg/dL (8.5-10.1); CARBON DIOXIDE 27 mmol/L (21-32); CHLORIDE 104 mmol/L (98-107); CREATININE 0.5 mg/dL (0.6-1.3); GLUCOSE 107 mg/dL (74-106); MAGNESIUM 2.1 mg/dL (1.8-2.4); PHOSPHORUS 2.8 mg/dL (2.5-4.9); POTASSIUM 3.8 mmol/L (3.5-5.1); SODIUM SERUM 139 mmol/L (136-145); TOTAL PROTEIN, SERUM 4.8 g/dL (6.4-8.2); UREA NITROGEN, BLOOD 14 mg/dL (7-18)
[2020-03-19] MEDS: ENSURE ENLIVE 237 ML LIQUID (VANILLA) PO SCH ×3 (09:00→16:17)
[2020-03-19] MEDS: DEXAMETHASONE SOD PHOSPHATE 4 MG/ML VIAL IV SCH (09:01)
[2020-03-19] MEDS: ENOXAPARIN SODIUM 40 MG/0.4 ML DISP.SYRIN SQ SCH (09:06)
[2020-03-19 09:48] LABS: BAND % (MANUAL) 1 % (0.0-5.0); LYMPHOCYTES % (MANUAL) 10 % (16-48); MONOCYTES % (MANUAL) 16 % (0-11.0); MYELOCYTES % 2 % (0-0); NEUTROPHILS % (MANUAL) 71 (42-76)
[2020-03-19 12:00] VITALS: BP 138/73
[2020-03-19] MEDS: CEFTRIAXONE 1 G in IV D5W 50 ML IV SCH (15:22)
[2020-03-19 16:00] VITALS: BP 130/71
--- NOTE | 2020-03-19 18:54 | NUR ---
RN CLOSING NOTE PATIENT IS IN BED WITH HOB AT SEMI FOWLERS POSITION. PATIENT IS AOX1. PATIENT HAS LAC THAT IS PATENT, INTACT, AND HAS NO SIGNS OF INFILTRATION. PATIENT HAS SCABS ON FACE, FINGERS, AND FEET. PATIENT HAS REDNESS ON BACKSIDE/SACRUM. NG TUBE IS INTACT. PATIENT IS RECEIVING 2L NC. BED IS LOCKED IN THE LOWEST POSITION, CALL BURRIS WITHIN REACH, THREE GUARD RAILS RAISED, AND ALL HOSPITAL SAFETY PRECAUTIONS ARE BEING FOLLOWED. WILL ENDORSE TO HORTICULTURAL SPECIALTY GROWER NURSE.
--- NOTE | 2020-03-19 20:32 | NUR ---
RN NOTE PATIENT A/OX1. NO SOB OR ANY RESPIRATORY DISTRESS. HEAD OF BED ELEVATED. ON O2 2LPM VIA NASAL CANNULA, O2 SAT WNL. NO S/S OF ANY DISCOMFORT. WITH LAC, PATENT AND INTACT, RUNNING D5W @75 ML/HR. NGTUBE IN INTACT WITH JEVITY 1.2 @ 60ML/HR RUNNING. PLACEMENT CHECKED AND VERIFIED THROUGH AUSCULTATION. BED LOCKED AND IN LOWEST POSITION. CALL LIGHT WITHIN REACH. WILL CONTINUE TO MONITOR.
[2020-03-20] VITALS: BP 108/72
--- NOTE | 2020-03-20 07:30 | NUR ---
RN NOTE PATIENT IN BED NO S/S OF DISTRESS, A/OX1. HEAD OF BED ELEVATED. ON O2 2L NASAL CANNULA, O2 SAT 95%. WITH JOSE RAFAEL MIDLINE, PATENT AND INTACT, RUNNING D5W @75 ML/HR. NG TUBE IN PLACE, CLOGGED AT THIS TIME, WILL TRY TO DECLOG. BED LOCKED AND IN LOWEST POSITION. CALL LIGHT WITHIN REACH.
[2020-03-20] MEDS: IV D5W 1,000 ML IV PRN (07:42)
[2020-03-20 08:00] VITALS: BP 154/79
--- NOTE | 2020-03-20 08:06 | NUR ---
RN NOTE PATIENT A/OX1. NO SOB OR ANY RESPIRATORY DISTRESS. HEAD OF BED ELEVATED. ON O2 2LPM VIA NASAL CANNULA, O2 SAT 99%. NO S/S OF ANY DISCOMFORT, DENIES ANY PAIN OR DISCOMFORT. WITH JOSE RAFAEL MIDLINE, PATENT AND INTACT, RUNNING D5W @75 ML/HR. NGTUBE IN PLACE, CLOGGED AT THIS TIME, ENDORSED TO DAYSMDFT NURSE FOR FOLLOW UP. BED LOCKED AND IN LOWEST POSITION. CALL LIGHT WITHIN REACH. ENDORSED TO ONCOMING SHIFT.
[2020-03-20] MEDS: DEXAMETHASONE SOD PHOSPHATE 4 MG/ML VIAL IV SCH (09:34)
[2020-03-20] MEDS: ENSURE ENLIVE 237 ML LIQUID (VANILLA) PO SCH (09:35)
[2020-03-20] MEDS: ENOXAPARIN SODIUM 40 MG/0.4 ML DISP.SYRIN SQ SCH (09:35)
--- NOTE | 2020-03-20 10:42 | NUR ---
TELE1 NG TUBE REMOVED BECAUSE IT WAS CLOGGED UNABLE TO UNCLOG WITH HELP OF CHARGE NURSE AND ADMINISTRATION. INSERTED A NEW NG TUBE SHILEY 16, PLACEMENT AT THE 55 BONY, PATIENT TOLERATED WELL, ORDERED CHEST X RAY TO CONFIRM.
--- NOTE | 2020-03-20 15:18 | NUR ---
TELE [address] CASTRO, ORDERED TO STOP D5W AND ENSURE BECAUSE THE PATIENT IS ON JEVITY 60ML/HR.
[2020-03-20] MEDS: CEFTRIAXONE 1 G in IV D5W 50 ML IV SCH (15:56)
[2020-03-20 16:00] VITALS: BP 117/71
--- NOTE | 2020-03-20 19:29 | NUR ---
RN NOTE PATIENT IN BED NO S/S OF DISTRESS, A/OX1. HEAD OF BED ELEVATED. ON 2L NASAL CANNULA, O2 SAT 95%. WITH JOSE RAFAEL MIDLINE, PATENT AND INTACT, RUNNING D5W @75 ML/HR. NG TUBE IN PLACE, RUNNING JEVITY AT 60ML/HR, TOLERATING WELL. BED LOCKED AND IN LOWEST POSITION. BED ALRM ON, SAFETY MEASURES IN PLACE. CALL LIGHT WITHIN REACH.
--- NOTE | 2020-03-20 19:30 | NUR ---
MS/RN OPENING NOTES: RECEIVED PATIENT IN BED, AWAKE, VERBALLY RESPONSIVE. A/OX1. NO S/S OF DISTRESS, HEAD OF BED ELEVATED. ON RA WITH O2 SAT 95%. JOSE RAFAEL MIDLINE, PATENT AND INTACT, NG TUBE IN PLACE, RUNNING JEVITY AT 60ML/HR, TOLERATING WELL. SAFETY MEASURES IN PLACE. BED LOCKED IN LOWEST AND LOCKED POSITION. BED ALARM ON, SR UPX2. CALL LIGHT WITHIN REACH. WILL CONTINUE TO MONITOR ACCORDINGLY.
[2020-03-20 22:00] VITALS: BP 152/70
[2020-03-21] MEDS: JEVITY 1.2 CAL 1,000 ML BOTTLE GT PRN (04:32)
--- NOTE | 2020-03-21 06:35 | NUR ---
MS/RN CLOSING NOTES: PATIENT REMAINS IN BED, SLEEPING COMFORTABLY AT THIS TIME. VERBALLY RESPONSIVE. A/OX1. NO S/S OF DISTRESS, HEAD OF BED ELEVATED. ON RA WITH O2 SAT 95%. JOSE RAFAEL MIDLINE, PATENT AND INTACT, NG TUBE IN PLACE, RUNNING JEVITY AT 60ML/HR, TOLERATING WELL. NO RESIDUALS NOTED. SAFETY MEASURES IN PLACE. BED LOCKED IN LOWEST AND LOCKED POSITION. BED ALARM ON, SR UPX2. CALL LIGHT WITHIN REACH. ALL DUE MEDS GIVEN ORDERED. ALL NURSING NEEDS MET AND RENDERED. WILL CONTINUE PLAN OF CARE AND ENDORSE TO DAY SHIFT RN FOR [facility].
--- NOTE | 2020-03-21 07:47 | NUR ---
RN OPENING NOTE RECEIVED PATIENT IN BED WITH HOB AT SEMI FOWLERS POSITION. PATIENT IS AOX1. NG TUBE IS IN PLACE. PATIENT IS CURRENTLY ON ROOM AIR. PATIENT HAS SACRAL. BILATERAL HEEL, AND RIGHT ELBOW WOUNDS. JOSE RAFAEL MIDLINE IS PATENT, INTACT, AND HAS NO SIGNS OF INFILTRATION. BED IS LOCKED IN THE LOWEST POSITION, 3 SIDE RAILS RAISED, AND CALL BURRIS IS WITHIN REACH. WILL CONTINUE TO MONITOR THROUGHOUT SHIFT.
[2020-03-21 08:00] VITALS: BP 103/65
[2020-03-21] MEDS: ENOXAPARIN SODIUM 40 MG/0.4 ML DISP.SYRIN SQ SCH ×2 (09:00→12:16)
--- NOTE | 2020-03-21 09:08 | NUR ---
DRILLER PORTABLE NOTE LOVENOX HELD DUE TO LOW HGB/HEMATOCRIT OF 11.7 AND 35. WILL CONTINUE TO MONITOR THROUGHOUT SHIFT.
--- NOTE | 2020-03-21 10:44 | NUR ---
TRACK MOVING MACHINE OPERATOR NOTE CLEANED AND TURNED PATIENT. BOWEL MOVEMENT PRESENT. FEEDING PAUSED AND RESUMED POST CLEANING. NOW NEW SKIN INFILTRATIONS. WILL CONTINUE TO MONITOR.
--- NOTE | 2020-03-21 12:38 | NUR ---
TREATMENT TECHNICIAN 1 SPOKE TO MD CASTRO, TOLD ABOUT THE BRUISING OVER THE PATIENTS BODY AND HEALING SCABS, TOLD OF H AND H DECREASING SLOWLY AND THAT COAGULATION HAS NOT BEEN COLLECTED SINCE THE 7TH, ASKED IF WANTS TO GIVE LOVENOX, HE SAID YES AND WILL ORDER COAGULATION FOR MORNING LABS. DISCUSSED HOW THE PATIENT IS RECEIVING MINIMAL CARE AT THE HOSPITAL BUT CAN NOT GO HOME ON AN NG TUBE, SAID HE WILL DISCUSS WITH MARELY, THE NEED FOR A PEG TUBE PLACEMENT AND WILL DISCUSS WITH THE . EXPRESSED THAT PATIENT IS TOLERATING FEEDING, <20ML OF RESIDUAL, AND IS ON ROOM AIR WITH O2 SAT >92%.
[2020-03-21 16:00] VITALS: BP 125/68
[2020-03-21] MEDS: CEFTRIAXONE 1 G in IV D5W 50 ML IV SCH (16:30)
--- NOTE | 2020-03-21 18:58 | NUR ---
RN CLOSING NOTE PATIENT IS IN BED WITH HOB AT SEMI MULTANI'S POSITION. PATIENT IS AOX1. PATIENT'S DIAPER IS APPLIEDD. PATIENT IS CURRENTLY 95% ON ROOM AIR. JOSE RAFAEL MIDLINE IS PATENT, INTACT, AND HAS NO SIGNS OF INFILTRATION. PATIENT HAS SACRAL, BILATERAL HEEL, AND RIGHT ELBOW WOUNDS. NG TUBE IS IN TACT AND RUNNING 60ML/HR. BED IS LOCKED IN THE LOWEST POSITION, 3 SIDE RAILS RAISED, CALL BURRIS WITHIN REACH, AND ALL HOSPITAL SAFETY PRECAUTIONS ARE BEING FOLLOWED. WILL ENDORSE TO RATE REVIEWER NURSE.
--- NOTE | 2020-03-21 20:02 | NUR ---
MS RN OPENING NOTE Patient awake in bed, A/O x1. HOB elevated. Breathing even, diminished, and unlabored on room air. No acute distress or SOB noted. Skin is warm, pink, dry, appropriate for ethnicity. Wound noted on sacrum. Dressing clean, dry, intact. Redness noted on bilateral heels. Offload and turn q2h PRN. Scab noted on right elbow. Dressing clean, dry, intact. IV site JOSE RAFAEL midline patent and intact, saline locked. No signs of redness or infiltration. NG tube in place @ 55 cm, running jevity 1.2 @ 60 ml/hr. No residual, patient tolerating well. Patient is incontinent, voiding via diaper. Bed in low position, wheels locked, side rails up x2, call light within reach.
[2020-03-21 21:46] VITALS: BP 122/70
--- NOTE | 2020-03-22 06:15 | NUR ---
MS RN CLOSING NOTE Patient asleep in bed, A/O x1. HOB elevated. Breathing even, diminished, and unlabored on room air. No acute distress or SOB noted. Wound noted on sacrum. Wound dressing changed. Offload and turn q2h PRN. IV site JOSE RAFAEL midline patent and intact, saline locked. No signs of redness or infiltration. NG tube in place @ 55 cm, running jevity 1.2 @ 60 ml/hr. Patient is incontinent, voiding via diaper 2x. Bed in low position, wheels locked, side rails up x2, call light within reach. Will endorse to oncoming nurse.
[2020-03-22 06:58] LABS: CALCIUM, SERUM 8.4 mg/dL (8.5-10.1); CREATININE 0.7 mg/dL (0.6-1.3); MAGNESIUM 2.3 mg/dL (1.8-2.4); POTASSIUM 4.1 mmol/L (3.5-5.1)
[2020-03-22 07:26] LABS: BASOPHILS % (AUTO) 0.3 % (0.0-2.0); EOSINOPHILS % (AUTO) 0.6 % (0.0-6.0); HEMATOCRIT 35 % (39-51); HEMOGLOBIN 11.5 g/dL (13.5-17.5); LYMPHOCYTES # (AUTO) 1.4 /CMM (0.8-4.8); LYMPHOCYTES % (AUTO) 13.5 % (20.0-44.0); MEAN CORPUSCULAR HGB CONC 33 g/dl (31.0-36.0); MEAN CORPUSCULAR VOLUME 93 fL (80-96); MONOCYTES # (AUTO) 1.2 /CMM (0.1-1.30); MONOCYTES % (AUTO) 11.8 % (2.0-12.0); NEUTROPHILS # (AUTO) 7.7 /CMM (1.8-8.9); NEUTROPHILS % (AUTO) 73.8 % (43.0-81.0); PLATELET COUNT (AUTO) 268 /CMM (150-450); RED BLOOD CELL COUNT(AUTO) 3.74 MIL/uL (4.5-6.0); WHITE BLOOD COUNT (AUTO) 10.5 K/uL (4.3-11.0)
[2020-03-22 09:00] VITALS: BP 127/73
[2020-03-22] MEDS: ENOXAPARIN SODIUM 40 MG/0.4 ML DISP.SYRIN SQ SCH (10:33)
[2020-03-22 11:57] LABS: LYMPHOCYTES % (MANUAL) 16 % (16-48); MONOCYTES % (MANUAL) 7 % (0-11.0); NEUTROPHILS % (MANUAL) 77 (42-76)
--- NOTE | 2020-03-22 13:56 | NUR ---
per requested Bed side swallow eval done with out diff ,no coughing passed bed side swallow evaluation done was notified and orders received will speak primary nurse
--- NOTE | 2020-03-22 18:29 | NUR ---
MS RN NOTES PATIENT IN BED RESTING NO SOB OR ACUTE DISTRESS NOTED. PATIENT PLACED ON CLEAR LIQUIDS DIET AFTER PASSING NURSING SWALLOW TEST. PATIENT ATE APPROXIMALLY 50% OF DIET FOR DINNER. ALL DUE MEDICATIONS ADMINISTERED. ALL NEEDS MET. WILL ENDORSE CARE TO PM SHIFT.
--- NOTE | 2020-03-22 19:58 | NUR ---
MS RN NOTES PATIENT IN BED, ASLEEP, EASILY AROUSED. ALERT AND ORIENTED X 1. BREATHING EVEN AND UNLABORED ON ROOM AIR. SHOWS NO SIGNS OF ACUTE RESPIRATORY DISTRESS. NO ACUTE PAIN. PT ABLE TO TOLERATED CLEAR LIQUIDS. WILL REMOVE NGT LATER INTO SHIFT. IV ON JOSE RAFAEL MIDLINE SL. ITS CLEAN DRY AND INTACT. FLUSHING WELL. SHOWS NO SIGNS OF INFILTRATION, NO REDNESS. SAFETY PRECAUTIONS IN PLACE. BED IN LOWEST POSITION, LOCKED, AND CALL LIGHT KEPT WITHIN REACH. WILL CONTINUE TO MONITOR.
[2020-03-22 21:00] VITALS: BP 147/73
[2020-03-23 00:15] VITALS: BP 133/76
[2020-03-23] MEDS ORDERED: LORAZEPAM INJ 2 MG/ML VIAL IV PRN (03:30)
--- NOTE | 2020-03-23 06:38 | NUR ---
MS RN NOTES PATIENT IN BED, ASLEEP, EASILY AROUSED. ALERT AND ORIENTED X 1. BREATHING EVEN AND UNLABORED ON ROOM AIR. SHOWS NO SIGNS OF ACUTE RESPIRATORY DISTRESS. NO ACUTE PAIN. PT ABLE TO TOLERATE CLEAR LIQUIDS, NG TUBE REMOVED ORDERED. JOSE RAFAEL MIDLINE SL. ITS CLEAN DRY AND INTACT. FLUSHING WELL. SHOWS NO SIGNS OF INFILTRATION, NO REDNESS. ALL DUE MEDICATIONS GIVEN. ALL NEEDS ATTENDED TO. SAFETY PRECAUTIONS IN PLACE. BED IN LOWEST POSITION, LOCKED, AND CALL LIGHT KEPT WITHIN REACH. WILL ENDORSE TO ONCOMING NURSE.
--- NOTE | 2020-03-23 07:30 | NUR ---
MS/RN OPENING NOTE Received patient resting in bed, moans upon tactile and verbal stimulation. No s/s of pain/discomfort at this time. Breathing even and non-labored on RA. No respiratory or cardiac distress noted. JOSE RAFAEL midline access noted, patent and intact, and flushing well. Bed locked to its lowest position, side rails x 2 up, bed alarm on. Will continue with current medical management.
--- NOTE | 2020-03-23 07:41 | NUR ---
WOUND CARE FOLLOW UP: REVIEWED CHART, NURSING DOCUMENTATION ANDPHOTOS WHICH CONTINUE TO INDICATE MULTIPLE AREAS OF DRY ABRASIONS AND INTACT DEEP TISSUE INJURIES, PRESENT ON ADMISSION. RECOMENDATIONS MADE FOR CONTINUED SKIN PROTECTION. DISCUSSED WITH NURSING STAFF. MD IN AGREEMENT WITH PLAN OF CARE.
[2020-03-23 08:00] VITALS: BP 141/78
[2020-03-23] MEDS: ENOXAPARIN SODIUM 40 MG/0.4 ML DISP.SYRIN SQ SCH (08:30)
[2020-03-23 09:00] VITALS: BP 141/78
--- NOTE | 2020-03-23 10:00 | NUR ---
TELE/RN NOTE REORDERED ST EVAL SINCE PATIENT IS HAVING DIFFICULTY SWALLOWING IN CLEAR LIQUIDS, PATIENT UNABLE TO CLOSE MOUTH AND SWALLO.
--- NOTE | 2020-03-23 10:21 | NUR ---
MS/RN OPENING NOTE RECEIVED THE PATIENT FROM NURSE LARKIN. THE PATIENT IS IN BED. AWAKE AND RESPONSIVE TO TACTILE STIMULI BY MAKING SOUND. IN ROOM AIR AND NO MANIFESTATION OF RESPIRATORY DISTRESS NOTED. RESPIRATION REGULAR AND UNLABORED. NO S/S DISTRESS NOTED.JOSE RAFAEL MIDLINE G18 PATENT AND SALINE LOCKED. BED LOW AND LOCKED. SIDE RAILS UP X3. CALL LIGHT WITHIN REACH. WILL CONTINUE TO MONITOR.
--- NOTE | 2020-03-23 10:24 | NUR ---
TELE/RN OPENING NOTE THE PATIENT IS RECEIVED IN BED. PATIENT IS ALERT AND ORIENTED X4. DENIES PAIN. PATIENT IS ON 15L/MIN VIA NONREBREATHER MASK. RESPIRATION REGULAR. JOSE RAFAEL MIDLINE G 18 PATENT AND SALINE LOCKED. TELE BOX READING IS SR 77. BED LOW AND LOCKED. SIDE RAILS UP X2. CALL LIGHT WITHIN REACH. WILL CONTINUE TO MONITOR.
--- NOTE | 2020-03-23 16:28 | NUR ---
TELE/RN NOTE NPO ORDERED BY DR CASTRO DUE TO PATIENT FAILED SWALLOW EVAL DONE BY SPEECH THERAPIST.
--- NOTE | 2020-03-23 16:56 | NUR ---
RN NOTE PER DR CASTRO REQUEST, DR YAP IS MADE AWARE TO SEE THE PATIENT SINCE THE PATIENT FAILED SWALLOW EVAL.
--- NOTE | 2020-03-23 16:59 | NUR ---
MS/RN NOTE ASKED DR CASTRO FOR AN IV FLUID ORDER SINCE THE PATIENT IS NPO. WAITING FOR MD ORDER. Addendum: 03/23/20 at 1844 by OH CURRIE RN NEW ORDER [id number] AT 75ML/HR PRN IS THE NEW ORDER FROM DR CASTRO. NOTED AND CARRIED OUT.
--- NOTE | 2020-03-23 19:09 | NUR ---
MS/RN NOTE ALERT AND ORIENTED X11. DENIES PAIN. IN ROOM AIR AND SATURATION IS AT 94%. DENIES SOB. RESPIRATION REGULAR AND UNLABORED. JOSE RAFAEL MIDLINE G 18 PATENT AND SALINE LOCKED. BED LOW AND LOCKED. SIDE RAILS UP X3. CALL LIGHT WITHIN REACH. WILL CONTINUE TO MONITOR.
[2020-03-23 20:00] VITALS: BP 149/90
[2020-03-23] MEDS: IV D5/ 0.9% NACL 1,000 ML IV PRN (22:24)
[2020-03-24 04:00] VITALS: BP 156/80
--- NOTE | 2020-03-24 04:12 | NUR ---
TAMMY/RN RECEIVED A CALL FROM SHIVAM THOMPSON, PATIENT'S , ASKING FOR UPDATE, UPDATES GIVEN. ATTEMPTED TO GET CONSENT FOR EGD/PEG PLACEMENT BUT SHE WANTS TO TALK TO THE DOCTOR FIRST BEFORE GIVING THE CONSENT. WILL ENDORSE.
--- NOTE | 2020-03-24 05:44 | NUR ---
TAMMY/RN MORNING CARE WAS DONE, GOOD SKIN CARE RENDERED, TOTAL LINEN CHANGE DONE, REPOSITIONED TO COMFORT. PATIENT WAS AWAKE, SCREAMS WHEN TOUCHED AND REPOSITIONED. PRESENTLY, PATIENT APPEARS SLEEPING, APPEARS COMFORTABLE, NO SIGNS OF DISTRESS NOTED, CALL LIGHT IN REACH, ALL NEEDS ATTENDED AT THIS TIME, WILL CONTINUE TO MONITOR.
[2020-03-24 07:33] LABS: BASOPHILS % (AUTO) 0.2 % (0.0-2.0); EOSINOPHILS % (AUTO) 0.2 % (0.0-6.0); HEMATOCRIT 39 % (39-51); HEMOGLOBIN 12.4 g/dL (13.5-17.5); LYMPHOCYTES # (AUTO) 1.1 /CMM (0.8-4.8); MEAN CORPUSCULAR HGB CONC 32 g/dl (31.0-36.0); MEAN CORPUSCULAR VOLUME 95 fL (80-96); MONOCYTES # (AUTO) 1.6 /CMM (0.1-1.30); MONOCYTES % (AUTO) 14.1 % (2.0-12.0); NEUTROPHILS # (AUTO) 8.3 /CMM (1.8-8.9); NEUTROPHILS % (AUTO) 75.5 % (43.0-81.0); PLATELET COUNT (AUTO) 282 /CMM (150-450); RED BLOOD CELL COUNT(AUTO) 4.11 MIL/uL (4.5-6.0)
--- NOTE | 2020-03-24 07:35 | NUR ---
RN NOTES PATIENT RECEIVED IN BED RESTING COMFORTABLY, PATIENT NON-VERBAL ABLE TO OPEN AND CLOSE EYES. ON ROOM AIR WITH NO RESPIRATORY DISTRESS NOTED AT THIS TIME WITH EVEN NON-LABORED BREATHING. IV ACCESS INTACT AND PATENT. PATIENT PRESENTING WITH NO PAIN OR DISCOMFORT AT THIS TIME. SAFETY PRECAUTIONS IMPLEMENTED WITH BED LOCKED, BED ALARM ON, BILATERAL SIDE RAILS UP, AND CALL LIGHT WITHIN EASY REACH. WILL CONTINUE TO MONITOR PATIENT.
--- NOTE | 2020-03-24 07:55 | NUR ---
Saleem Santana [phone] was notified re;patient's requesting speak to MD before consent waiting for returning call back
[2020-03-24 09:00] VITALS: BP 149/80
[2020-03-24 09:27] LABS: BILIRUBIN,TOTAL 1.4 mg/dL (0.2-1.0); CALCIUM, SERUM 8.8 mg/dL (8.5-10.1); MAGNESIUM 2.7 mg/dL (1.8-2.4); PHOSPHORUS 2.5 mg/dL (2.5-4.9); POTASSIUM 4.2 mmol/L (3.5-5.1); TOTAL PROTEIN, SERUM 5.8 g/dL (6.4-8.2)
[2020-03-24] MEDS: ENOXAPARIN SODIUM 40 MG/0.4 ML DISP.SYRIN SQ SCH (11:28)
[2020-03-24] MEDS: IV D5/ 0.9% NACL 1,000 ML IV PRN (11:31)
[2020-03-24 13:14] LABS: BAND % (MANUAL) 2 % (0.0-5.0); LYMPHOCYTES % (MANUAL) 10 % (16-48); MONOCYTES % (MANUAL) 13 % (0-11.0); MYELOCYTES % 2 % (0-0); NEUTROPHILS % (MANUAL) 73 (42-76)
[2020-03-24] MEDS ORDERED: LACT-209 GT (14:24)
[2020-03-24 16:00] VITALS: BP 156/76
[2020-03-24 18:11] LABS: CREATININE 0.8 mg/dL (0.6-1.3)
--- NOTE | 2020-03-24 18:20 | NUR ---
AMUSEMENT PARK WORKER NOTES PATIENT IN BED RESTING COMFORTABLY, PATIENT NON-VERBAL ABLE TO OPEN AND CLOSE EYES. ON ROOM AIR WITH NO RESPIRATORY DISTRESS NOTED AT THIS TIME WITH EVEN NON-LABORED BREATHING. MET ALL OF PATIENT'S NEEDS. IV ACCESS REMOVED AND CATHETER TIP INTACT AND APPLIED PRESSURE TO SITE. PATIENT PRESENTING WITH NO PAIN OR DISCOMFORT AT THIS TIME. SKIN ASSESSMENT DONE, PATIENT ACCOUNTED FOR ALL BELONGINGS. REMOVED ID BAND. PATIENT LEFT UNIT VIA GURNEY ACCOMPANIED BY TWO SUPERVISOR FITTING.
== END 2020-03-24 18:50 | disposition hospice, inpatient (51) | DRG 177 ==
LOC: ER 00:43 → TRANSITION 03:08 → TELE1 03-14 01:53 → MEDSG1 03-17 08:29
PROVIDERS: ATTEND Nurse Practitioner Acute Care
PROC: 05HY33Z Insertion of Infusion Device into Upper Vein, Percutaneous Approach (ICD-10-PCS; principal; 2020-03-17)
DX: U07.1 COVID-19 (principal); J12.82 Pneumonia due to coronavirus disease 2019; J96.01 Acute respiratory failure with hypoxia; N17.0 Acute kidney failure with tubular necrosis; E87.0 Hyperosmolality and hypernatremia; G93.40 Encephalopathy, unspecified; J98.11 Atelectasis; Z51.5 Encounter for palliative care; Z66 Do not resuscitate; R41.82 Altered mental status, unspecified; F03.90 Unspecified dementia, unspecified severity, without behavioral disturbance, psychotic disturbance, mood disturbance, and anxiety; Z98.1 Arthrodesis status; R74.01 Elevation of levels of liver transaminase levels; N13.9 Obstructive and reflux uropathy, unspecified; F09 Unspecified mental disorder due to known physiological condition; R13.10 Dysphagia, unspecified; Z87.891 Personal history of nicotine dependence; R91.8 Other nonspecific abnormal finding of lung field; I67.2 Cerebral atherosclerosis; I70.0 Atherosclerosis of aorta
CPT/HCPCS: 36415; 70450-TC; 71045-TC; 71250-TC; 80048-TC; 80053-TC; 80061-TC; 80076-TC; 80202-TC; 82140-TC; 82550-TC; 82728-TC; 83615-TC; 83735-TC; 83880; 84100-TC; 84443-TC; 84484-TC; 85025-TC; 85378-TC; 85730-TC; 86140-TC; 87040-TC; 87081-TC; 87899; 92526; 92611-TC; 93308-TC; 97112-TC; 97530-TC; A9563; G0378; J0456; J0696; J1100; J1644; J1650; J2405; J3370; J3490; J7030; J7042; J7050; J7060; J7070